=== PATIENT | male | born 1980 | race Caucasian/White ===

== ENCOUNTER 2017-04-22 11:18 | Emergency (ER) | payer OTHER ==
[~2017-04-22] VITALS: Ht 182.9 cm; Wt 90.7 kg
[2017-04-22] MEDS ORDERED: IBUPROFEN800 MG PO (11:50)
== END 2017-04-22 11:59 | disposition home or self-care (01) ==
LOC: ED 11:18
DX: N50.811 Right testicular pain (principal); F17.200 Nicotine dependence, unspecified, uncomplicated; Z87.442 Personal history of urinary calculi; Z88.1 Allergy status to other antibiotic agents; Z88.8 Allergy status to other drugs, medicaments and biological substances
CPT/HCPCS: 99282